=== PATIENT | male | born 1970 | race Caucasian/White ===

== ENCOUNTER 2020-10-27 11:13 | Emergency (ER) | payer BC, OTHER ==
[~2020-10-27] VITALS: Ht 175.3 cm; Wt 81.8 kg
[2020-10-27 11:20] VITALS: BP 137/84
== END 2020-10-27 11:46 | disposition home or self-care (01) ==
LOC: ER 11:14
DX: R07.89 Other chest pain (principal); R05 Cough; R50.9 Fever, unspecified; Z20.828 Contact with and (suspected) exposure to other viral communicable diseases; Z88.8 Allergy status to other drugs, medicaments and biological substances
CPT/HCPCS: 36415; 87635; 99283